=== PATIENT | female | born 1935 | race Caucasian/White ===

== ENCOUNTER 2016-04-05 13:39 | Inpatient (IN) | payer MEDICARE, MEDICAID ==
[~2016-04-05] VITALS: Ht 157.5 cm; Wt 74.1 kg
[~2016-04-05 13:39] MED LIST: CALC625T PO; DIVA250T PO; DIVA500T17 PO; Ibuprofen PO; LISI10TA2 PO; LORA-447 PO; LORA10TA75 PO; METO25TA9 PO; OLAN5TAB3 PO; OLAN5TAB5 SL; RISP0.2518 PO; SENN8.6C2 PO; SIMV10TA3 PO
[2016-04-05] MEDS ORDERED: NS 1000ML 1,000 ML IV ONE (14:30)
--- NOTE | 2016-04-05 14:48 | ER.PDOC ---
General Chief Complaint: Altered Mental Status Stated Complaint: FALL TRAVEL OUT OF US: No Time seen by MD: 14:46 Source: patient, halfway records Exam Limitations: no limitations History of Present Illness Initial Comments Elevated creatinine, sent from care home. Timing/Duration: unsure Associated Symptoms: denies symptoms Allergies: Coded Allergies: butorphanol (Verified Allergy, Unknown, 03/07/15) Home Meds Active Scripts Simvastatin 10 Mg Scyxml47 Mg PO HS #30 TABLET Prov:CUCO ANTONY MD 04/08/15 Lisinopril 10 Mg Ugnruk30 Mg PO HS #30 TABLET Prov:CUCO ANTONY MD 04/08/15 Metoprolol Succinate 25 Mg Tab.er.24h25 Mg PO DAILY #30 TAB Prov:CUCO ANTONY MD 04/08/15 Loratadine (Claritin)10 Mg Pvrfah94 Mg PO DAILY #30 TABLET Prov:CUCO ANTONY MD 04/08/15 [Ibuprofen] 600 MG TABLET No Conflict Uoipw923 Mg PO Q8HR PRN PAIN #100 TABLET Prov:CUCO ANTONY MD 04/08/15 Sennosides (Senna)8.6 Mg Capsule8.6 Mg PO BID #60 CAPSULE Prov:CUCO ANTONY MD 04/08/15 Calcium Polycarbophil (Fibercon)625 Mg Tablet1,250 Mg PO DAILY #30 TABLET Prov:CUCO ANTONY MD 04/08/15 Risperidone (Risperdal)0.25 Mg Tablet0.5 Mg PO BID #60 TABLET Ref 1 Prov:MARLENI BAILEY IV, MD 04/07/15 Divalproex Sodium (Depakote Er)250 Mg Tab.er.59p126 Mg PO HS #30 Prov:RICKEY HARLEY MD 03/21/15 Past Medical History Medical History: hypertension, other Surgical History: coronary bypass surgery Social History Smoking: non-smoker Alcohol Use: none Drug Use: none Review of Systems Constitutional: no symptoms reported Respiratory: no symptoms reported Cardiovascular: no symptoms reported Gastrointestinal: no symptoms reported Genitourinary: see HPI Musculoskeletal: no symptoms reported Skin: no symptoms reported All Other Systems: Reviewed and Negative Physical Exam General Appearance: No Apparent Distress, WD/WN Neck: Non-Tender, Full Range of Motion, Supple, Normal Inspection Respiratory: chest non-tender, lungs clear, normal breath sounds, no respiratory distress CVS: reg rate & rhythm, no murmur, no gallop, pulses nml, nml capillary refill Gastrointestinal: Normal Bowel Sounds, No Organomegaly, No Pulsatile Mass, Non Tender Back: Normal Inspection, No CVA Tenderness Extremities: Normal Range of Motion 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 NML as Tested Results/Orders Results/Orders Administered Medications Medications (Trade) Dose Ordered Sig/Say Route PRN Reason Start Time Stop Time Status Last Admin Dose Admin Sodium Chloride (NS 1000ml) 1,000 ml @ 100 mls/hr Q10H ONCE IV 04/05/16 14:30 04/06/16 00:29 04/05/16 15:34 Course Blood Pressure Systolic: 127 Blood Pressure Diastolic: 60 Blood Pressure Mean: 82 Departure Time of Disposition: 15:52 Disposition: 09 ADMITTED INPATIENT Impression: Primary Impression: Acute kidney injury Additional Impression: Dehydration Condition: Stable Referrals: PCP,UNKNOWN (PCP) PRIMARY CARE PROVIDER Comments Admitted to Dr. Irving RASHID,MARYLIN Rubalcava MD Apr 05, 2016 14:48
--- NOTE | 2016-04-05 14:50 | NUR ---
DR FAISAL MONCADA MBA ON PHONE WITH DR MALONE
--- NOTE | 2016-04-05 15:08 | NUR ---
MS CALLED MS FOR RM #. PER NURSE, SABRINA IS NOT AT DESK AND SHE WILL CALL BACK ONCE SHE ASKS HIM WHAT RM
--- NOTE | 2016-04-05 15:16 | DIREP ---
PROCEDURE:CHEST X-RAY, AP PORTABLE COMPARISON:[facility], CR, XRAY CHEST SINGLE VW, 03/30/2015, 06:28 PM. [facility], CR, XRAY CHEST SINGLE VW, 03/07/2015, 05:30 PM. INDICATIONS:Elevated white count R/O infection FINDINGS: LUNGS/PLEURA:No significant pulmonary parenchymal abnormalities. No effusions. VASCULATURE:Normal. Unremarkable pulmonary vasculature. CARDIAC:Median sternotomy wires and CABG markers are present. MEDIASTINUM:Atherosclerotic calcifications of the thoracic aorta are noted. BONES:Marked degenerative changes are seen in the shoulders OTHER:Negative. CONCLUSION: 1. Evidence of prior CABG procedure. 2. No active pulmonary disease. Dictated by: Chirag Rangel MD on 04/05/2016 at 03:13 PM
[2016-04-05] MEDS ORDERED: NS 1000ML 1,000 ML ONE (15:24)
--- NOTE | 2016-04-05 15:58 | PRM.ACF1 ---
Date and Time Date and Time Time: 15:58 Admission Criteria Forms DEHYDRATION Clinical Indications for Admission to Inpatient Care (Place 'X' for any and all applicable criteria): Admission is indicated for ANY ONE of the following (1)(2)(3)(4)(5): [ x]I. Inpatient admission required rather than observation care (see Dehydration: Observation Care guideline as appropriate) because of ANY ONE of the following: [ ]a) Vomiting that is severe or persistent [ ]b) Severe electrolyte abnormalities requiring inpatient care [ ]c) Hemodynamic instability [ ]d) IV fluid to replace significant ongoing losses (greater than 3 L/m2 per day (10) (11) [ ]e) Parenteral nutrition regimen that must be implemented on inpatient basis [ ]f) Other condition,treatment or monitoring requiring inpatient admission [ ]II. Serious cause for dehydration requiring acute hospitalization (eg, bowel obstruction, increased intracranial pressure, infectious cause) Extended stay beyond goal length of stay may be needed for(1)(3 )(4)(17): [ ]a) Chronic severe dehydration [ ]b) Persistent vital sign changes, severe electrolyte imbalance, or diagnosed cause of dehydration that requires continued hospitalization (eg, bowel obstruction, increased intracranial pressure) [ ]c) Older patients (65 years or older) [ ]d) Severe comorbid illness (eg, renal failure, heart failure, poorly controlled diabetes) The original [employer] content created by [employer] has been revised. The portions of the content which have been revised are identified through the use of italic text or in bold, and [facility] has neither reviewed nor approved the modified material. All other unmodified content is copyright [employer] [facility]. Please see references footnoted in the original [employer] edition 2015 MARYLIN RASHID MD Apr 05, 2016 15:58
[2016-04-05] MEDS ORDERED: KCL IV SCH (16:00)
[2016-04-05] MEDS ORDERED: [UNRECOGNIZED DRUG - OTHER] IV SCH (16:00)
[2016-04-05] MEDS ORDERED: 1/2 NS IV SCH (16:00)
[2016-04-05] MEDS ORDERED: RISP1TAB3 PO (16:12)
[2016-04-05 16:37] LABS: BILIRUBIN,URINE NEGATIVE (NEGATIVE); PH,URINE 5 (5.0-6.0); UROBILINOGEN,URINE NORMAL (NEGATIVE)
[2016-04-05 16:40] LABS: APPEARANCE,URINE HAZY (CLEAR); UA COLOR YELLOW (YELLOW)
[2016-04-05 16:57] VITALS: BP 136/72
[2016-04-05] MEDS: D5W-1/2 NS/KCL 20MEQ 1,000 ML IV SCH (17:35)
--- NOTE | 2016-04-05 17:48 | NUR ---
admit ASSESSMENT COMPLETE CHARTED, ADMITTED WITH ARF AND DEHYDRATION, PT BECAME WEAK AND FELL, [facility] HAD PT TRANSPORTED HERE VIA EMS. ASSESSMENT COMPLETE CHARTED. LEFT IN SEMIF[facility]ERS CALL LIGHT IN REACH, HANDRAIL UP X2.
[2016-04-05 20:00] VITALS: BP 114/52
[2016-04-06] VITALS (7 sets, daily range): BP systolic 118–189; BP diastolic 56–94
[2016-04-06] MEDS: D5W-1/2 NS/KCL 20MEQ 1,000 ML IV SCH ×2 (03:45→12:24)
[2016-04-06 05:39] LABS: BASOPHIL % 0.1 % (0.0-0.2); EOSINOPHIL # 0.2 10^3/uL (0.0-0.2); EOSINOPHIL % 2.4 % (0.0-5.0); HEMATOCRIT 39.3 % (36.0-46.0); HEMOGLOBIN 13.3 g/dL (12.0-15.0); LYMPHOCYTES # 1.5 10^3/uL (1.0-4.8); LYMPHOCYTES % 14.6 % (24.0-44.0); MEAN CELL HGB 31.2 pg (26-34); MEAN CELL HGB CONCENTRATION 33.8 g/dL (33-37); MEAN CORP VOLUME 92.3 fL (78-100); MEAN PLATELET VOLUME 8.6 fL (7.8-11.0); MONOCYTES # 1.7 10^3/uL (0.3-0.8); MONOCYTES % 17.2 % (5.0-12.0); NEUTROPHIL # 6.6 10^3/uL (1.8-7.7); NEUTROPHILS % 65.5 % (41.0-85.0); RED BLOOD CELL 4.26 10^6/uL (4.00-5.20); RED CELL DISTRIBUTION WIDTH 13.4 % (11.5-14.5); WHITE BLOOD CELL 10.1 10^3/uL (4.5-11.0)
[2016-04-06 05:49] LABS: ANION GAP 16.1; CALCIUM 8.3 mg/dL (8.4-10.5); CARBON DIOXIDE 19.1 mmol/L (20.0-32); CREATININE SERUM 1.35 mg/dL (0.59-1.40); GLUCOSE 110 mg/dL (70-110)
[2016-04-06] MEDS ORDERED: TYLENOL PO ONE (06:28)
[2016-04-06] MEDS ORDERED: TYLENOL PO PRN (06:30)
--- NOTE | 2016-04-06 08:30 | NUR ---
DISCHARGE PLAN VISITED WITH PATIENT CONCERNING DISCHARGE PLAN AND NEED. PATIENT STATED SHE LIVES @ [facility] AND IS HAPPY THERE. PATIENT ALSO STATED SHE IS WHEELCHAIR BOUND; HOWEVER SHE IS VERY INDEPENDENT ON ADLS. CM NOTIFIED [facility] AND SPOKE TO DANNI REGARDING PATIENTS HOSPITAL ADMISSION. DANNI STATED PATIENT IS A RESIDENT WITH [facility] AND IS "OKAY" TO COME BACK UPON DISCHARGE ACCORDING TO HER INSURANCE-NO INSURANCE BARRIER. CURRENT GOAL FOR PATIENT IS TO RETURN BACK HOME TO [facility] UPON DISCHARGE. CM TO CONTINUE TO FOLLOW PATIENTS PLAN OF CARE.
--- NOTE | 2016-04-06 08:40 | PCM.HP ---
History of Present Illness Reason for Visit: weakness and acute renal failure History of Present Illness 80-year-old lady , very poor historian due to severe dementia. Resides in assisted and wast ransferred to our emergency room for abnormal lab results show an acute renal failure with weakness. patient was unable to give me any more medical information, there was a notable mid sternotomy scar for open heart procedure the patient cannot identify. no family members were available to assist in obtaining further medical history the patient creatinine was 2.3 on presentation she was started on IV fluids Past Medical History Cardiac: HTN, Other ENT: Allergic Rhinitis Past Surgical History: CABG ( details unavailable) Past Social History Smoke: No Alcohol: none Lives: [facility] Travel Hx EBOLA RISK:Travel to/contact w: No Is pt experiencing any Ebola s: No Review of Systems Constitutional: : Malaise: Weakness ENT: No: Ear discharge, Ear pain, Mouth pain, Mouth swelling, Nose congestion, Nose discharge, Nose pain, Other, Throat pain, Throat swelling Respiratory: : Cough: Dry: Shortness of breath Cardiovascular: No: Chest Pain, Edema, Lt Headedness, Orthopnea, Other, Palpitations, Paroxysmal Noc. Dyspnea Gastrointestinal: No: Abdominal Pain, Constipation, Diarrhea, Hematochezia, Melena, Nausea, Other, Vomiting Genitourinary: No Dysuria, No Frequency, No Incontinence, No Hematuria, No Retention, No Other Musculoskeletal: : arm pain: back pain: foot pain: hand pain: leg pain: neck pain: shoulder painNo: other Skin: No: Bruising, Jaundice, Lesions, Other, Rash Allergies: Coded Allergies: butorphanol (Verified Allergy, Unknown, 03/07/15) Scheduled Calcium Polycarbophil (Fibercon) 1,250 MG PO DAILY Divalproex Sodium (Depakote Er) 750 MG PO HS Lisinopril (Lisinopril) 10 MG PO HS Loratadine (Claritin) 10 MG PO DAILY Metoprolol Succinate (Metoprolol Succinate) 25 MG PO DAILY Risperidone (Risperidone) 1 TAB PO BID (Reported) Sennosides (Senna) 8.6 MG PO BID Simvastatin (Simvastatin) 10 MG PO HS Scheduled PRN ([Ibuprofen]) 600 MG PO Q8HR PRN PRN PAIN Discontinued Medications Risperidone (Risperdal) 0.5 MG PO BID Discontinued Reason: No Longer Taking VTE VTE Risk Total Score: 3 VTE Risk Score VTE Risk: Score 0-1 = Low Risk (Aggressive mobilization; early ambulation; no VTE prophylaxis required) Score 2: Moderate Risk (Intermittent/Pneumatic Compression Device OR Lovenox/Heparin/Coumadin) Score 3-4: High Risk (Intermittent/Pneumatic Compression Device AND Lovenox/Heparin/Coumadin) Score > or =5: Highest Risk (Intermittent/Pneumatic Compression Device AND Lovenox/Heparin/Coumadin) Antico:Hep/LMWH/Coum/Xarelto: Yes VTE VTE Present on Admission: Yes Currently receiving anticoagul: No VTE Risk Total Score: 3 Exam Vital Signs Vital Signs Date Time Temp Pulse Resp B/P Pulse Ox O2 Delivery O2 Flow Rate FiO2 04/06/16 04:00 98.1 90 18 136/84 93 04/05/16 22:30 Room Air General Appearance: Alert, No acute distress, Other HEENT: Atraumatic, EOMI Respiratory: Clear to auscultation, Other ( notable mid sternotomy scar) Cardiovascular: Regular rate, Normal S1, Normal S2, Other ( no mechanical sounds) Abdominal: Normal bowel sounds Extremities: No clubbing, No cyanosis Skin: No rash Assessment/Plan Assessment/Plan Assessment/Plan - acute renal failure - dehydration - severe dementia - CABG - chronic lumbar pain Problems: Patient History: Asthma 21 CHILD Congestive heart failure 34 MOTHER ENEDELIA MALONE MD Apr 06, 2016 08:40
[2016-04-06] MEDS ORDERED: NS 1000ML 1,000 ML IV ONE (09:00)
[2016-04-06] MEDS: SENOKOT PO SCH ×2 (09:14→21:22)
[2016-04-06] MEDS: CLARITIN PO SCH (09:14)
[2016-04-06] MEDS: FIBERCON PO SCH (09:14)
[2016-04-06] MEDS: TOPROL XL PO SCH (09:14)
[2016-04-06] MEDS: RISPERDAL PO SCH ×2 (09:14→21:21)
[2016-04-06] MEDS: PEPCID PO SCH ×2 (09:14→21:21)
[2016-04-06] MEDS: LOVENOX SQ SCH (09:15)
[2016-04-06 09:36] LABS: CHOLESTEROL 145 mg/dL (120-240); HDL CHOLESTEROL 33 mg/dL (32-96)
[2016-04-06 15:21] LABS: BILIRUBIN,URINE NEGATIVE (NEGATIVE); PH,URINE 6 (5.0-6.0); UROBILINOGEN,URINE NORMAL (NEGATIVE)
[2016-04-06 15:25] LABS: APPEARANCE,URINE CLEAR (CLEAR); UA COLOR STRAW (YELLOW)
[2016-04-06] MEDS: NORCO 5 MG PO PRN (19:24)
[2016-04-06] MEDS ORDERED: ZOCOR ONE (20:54)
[2016-04-06] MEDS: DEPAKOTE ER PO SCH (21:21)
[2016-04-06] MEDS: ZESTRIL PO SCH (21:21)
[2016-04-06] MEDS: ZOCOR PO SCH (21:22)
[2016-04-07] MEDS: D5W-1/2 NS/KCL 20MEQ 1,000 ML IV SCH ×2 (01:04→09:31)
[2016-04-07] MEDS: NORCO 5 MG PO PRN (01:36)
[2016-04-07 04:00] VITALS: BP 126/55
[2016-04-07 06:46] LABS: BASOPHIL # 0.1 10^3/uL (0.0-0.1); BASOPHIL % 0.7 % (0.0-0.2); EOSINOPHIL # 0.4 10^3/uL (0.0-0.2); EOSINOPHIL % 4.5 % (0.0-5.0); HEMATOCRIT 36.5 % (36.0-46.0); HEMOGLOBIN 12.3 g/dL (12.0-15.0); LYMPHOCYTES # 1.9 10^3/uL (1.0-4.8); LYMPHOCYTES % 23.9 % (24.0-44.0); MEAN CELL HGB 31.7 pg (26-34); MEAN CELL HGB CONCENTRATION 33.7 g/dL (33-37); MEAN CORP VOLUME 94.1 fL (78-100); MEAN PLATELET VOLUME 8.7 fL (7.8-11.0); MONOCYTES # 1.6 10^3/uL (0.3-0.8); MONOCYTES % 19.3 % (5.0-12.0); NEUTROPHIL # 4.1 10^3/uL (1.8-7.7); NEUTROPHILS % 51.4 % (41.0-85.0); PLATELET COUNT 105 10^3/uL (150-400); RED BLOOD CELL 3.88 10^6/uL (4.00-5.20); RED CELL DISTRIBUTION WIDTH 13.1 % (11.5-14.5); WHITE BLOOD CELL 8.1 10^3/uL (4.5-11.0)
[2016-04-07 07:12] LABS: ANION GAP 14.4; CALCIUM 8.3 mg/dL (8.4-10.5); CARBON DIOXIDE 21.6 mmol/L (20.0-32); CREATININE SERUM 0.71 mg/dL (0.59-1.40); GLUCOSE 122 mg/dL (70-110)
[2016-04-07 08:54] VITALS: BP 146/68
[2016-04-07] MEDS: PEPCID PO SCH ×2 (08:56→20:19)
[2016-04-07] MEDS: SENOKOT PO SCH ×2 (08:56→20:19)
[2016-04-07] MEDS: RISPERDAL PO SCH ×2 (08:56→20:20)
[2016-04-07] MEDS: TOPROL XL PO SCH (08:56)
[2016-04-07] MEDS: CLARITIN PO SCH (08:56)
[2016-04-07] MEDS: FIBERCON PO SCH (08:57)
[2016-04-07] MEDS: LOVENOX SQ SCH (08:58)
--- NOTE | 2016-04-07 10:35 | PRM.PN ---
Subjective Subjective Subjective 80-year-old lady , very poor historian due to severe dementia. Resides in [facility] and was transferred to our emergency room for abnormal lab results show an acute renal failure with weakness. patient was unable to give me any more medical information, there was a notable mid sternotomy scar for open heart procedure the patient cannot identify. no family members were available to assist in obtaining further medical history the patient creatinine was 2.3 on presentation she was started on IV fluids, Improved significantly with hydration, mental status remained stable. Patient was communicative but demented. lab results were reviewed. Patient is stable. Pending availability of [facility] patient for transfer back she is on the following regimen of GI and DVT prophylaxis Patient History: Asthma 21 CHILD Congestive heart failure 34 MOTHER VTE VTE Risk Total Score: 3 VTE Risk Score VTE Risk: Score 0-1 = Low Risk (Aggressive mobilization; early ambulation; no VTE prophylaxis required) Score 2: Moderate Risk (Intermittent/Pneumatic Compression Device OR Lovenox/Heparin/Coumadin) Score 3-4: High Risk (Intermittent/Pneumatic Compression Device AND Lovenox/Heparin/Coumadin) Score > or =5: Highest Risk (Intermittent/Pneumatic Compression Device AND Lovenox/Heparin/Coumadin) Antico:Hep/LMWH/Coum/Xarelto: Yes Review of Systems Constitutional: : Malaise: Weakness ENT: No: Ear discharge, Ear pain, Mouth pain, Mouth swelling, Nose congestion, Nose discharge, Nose pain, Other, Throat pain, Throat swelling Respiratory: : Cough: Dry: Shortness of breath Cardiovascular: No: Chest Pain, Edema, Lt Headedness, Orthopnea, Other, Palpitations, Paroxysmal Noc. Dyspnea Gastrointestinal: No: Abdominal Pain, Constipation, Diarrhea, Hematochezia, Melena, Nausea, Other, Vomiting Genitourinary: No Dysuria, No Frequency, No Incontinence, No Hematuria, No Retention, No Other Musculoskeletal: : arm pain: back pain: foot pain: hand pain: leg pain: neck pain: shoulder painNo: other Skin: No: Bruising, Jaundice, Lesions, Other, Rash Allergies: Coded Allergies: butorphanol (Verified Allergy, Unknown, 03/07/15) Scheduled Calcium Polycarbophil (Fibercon) 1,250 MG PO DAILY Divalproex Sodium (Depakote Er) 750 MG PO HS Lisinopril (Lisinopril) 10 MG PO HS Loratadine (Claritin) 10 MG PO DAILY Metoprolol Succinate (Metoprolol Succinate) 25 MG PO DAILY Risperidone (Risperidone) 1 TAB PO BID (Reported) Sennosides (Senna) 8.6 MG PO BID Simvastatin (Simvastatin) 10 MG PO HS Scheduled PRN ([Ibuprofen]) 600 MG PO Q8HR PRN PRN PAIN Discontinued Medications Risperidone (Risperdal) 0.5 MG PO BID Discontinued Reason: No Longer Taking Objective Vitals and I/O Vital Sign - Last 24 Hours 04/06/16 04/06/16 04/06/16 04/06/16 12:19 16:12 19:22 19:53 Temp 97.7 98.7 98.4 Pulse 81 93 92 Resp B/P 142/66 189/94 164/80 Pulse Ox 93 92 91 O2 Delivery Room Air 04/06/16 04/06/16 04/07/16 04/07/16 21:21 23:55 04:00 08:54 Temp 98.7 99.2 97.5 Pulse 84 75 73 Resp 18 B/P 164/80 160/84 126/55 146/68 Pulse Ox 92 91 94 Intake and Output 04/06/16 04/06/16 04/07/16 15:00 23:00 07:00 Intake Total 3922 ml Output Total 3200 ml 500 ml Balance -3200 ml 3422 ml General: Alert HEENT: Atraumatic, Other ( Old mid sternotomy scar) Neck: Supple, No thyromegaly, Other Lungs: Clear to auscultation, Normal air movement Heart: Regular rate, No murmurs, Other ( soft systolic murmur) Abdomen: Normal bowel sounds Extremities: No clubbing Skin: No rashes Medication Reconciliation Scheduled Calcium Polycarbophil (Fibercon) 1,250 MG PO DAILY Divalproex Sodium (Depakote Er) 750 MG PO HS Lisinopril (Lisinopril) 10 MG PO HS Loratadine (Claritin) 10 MG PO DAILY Metoprolol Succinate (Metoprolol Succinate) 25 MG PO DAILY Risperidone (Risperidone) 1 TAB PO BID (Reported) Sennosides (Senna) 8.6 MG PO BID Simvastatin (Simvastatin) 10 MG PO HS Scheduled PRN ([Ibuprofen]) 600 MG PO Q8HR PRN PRN PAIN Discontinued Medications Risperidone (Risperdal) 0.5 MG PO BID Discontinued Reason: No Longer Taking Assessment/Plan Assessment/Plan Patient History: Asthma 21 CHILD Congestive heart failure 34 MOTHER ENEDELIA MALONE MD Apr 07, 2016 10:35
[2016-04-07 11:41] LABS: BAND NEUTROPHILS 3 % (2-6); BASOPHIL 0 % (0-2); BLAST 0 %; DIFFERENTIAL COMMENT 9 REACTIVE LYMPH; EOSINOPHIL 5 % (1-4); HYPOCHROMIA 1+ (NEGATIVE); LYMPHOCYTE 14 % (25-36); MONOCYTE 12 % (3-9); MYELOCYTES 0 %; NUCLEATED RED BLOOD CELLS 0 % (0-0); OTHER CELL TYPE 9; PLASMA CELLS 0; POIKILOCYTOSIS 1+ (NEGATIVE); POLYCHROMASIA NEGATIVE (NEGATIVE); PROMYELOCYTES 0 %; SEGMENTED NEUTROPHILS 53 % (31-76); TOTAL CELLS COUNTED 100 #CELLS
[2016-04-07 11:42] LABS: ACANTHOCYTES NEGATIVE (NEGATIVE); ANISOCYTOSIS 3+ (NEGATIVE); BURR CELLS NEGATIVE (NEGATIVE); CABOT RINGS NEGATIVE (NEGATIVE); CRENATED RBCS NEGATIVE (NEGATIVE); ECHINOCYTES NEGATIVE (NEGATIVE); ELLIPTOCYTES NEGATIVE (NEGATIVE); HELMET CELLS NEGATIVE (NEGATIVE); HOWELL-JOLLY BODIES NEGATIVE (NEGATIVE); MICROCYTOSIS 2+ (NEGATIVE); OVALOCYTES NEGATIVE (NEGATIVE); ROULEAUX NEGATIVE (NEGATIVE); SCHISTOCYTES NEGATIVE (NEGATIVE); SICKLE CELLS NEGATIVE (NEGATIVE); SMUDGE CELLS NEGATIVE (NEGATIVE); SPHEROCYTES NEGATIVE (NEGATIVE); STOMATOCYTES NEGATIVE (NEGATIVE); TARGET CELLS NEGATIVE (NEGATIVE); TOXIC GRANULATION NEGATIVE (NEGATIVE)
--- NOTE | 2016-04-07 18:35 | NUR ---
REPORT REPORT RECEIVED FROM CARMEN ARZOLA ASSUMED CARE OF PT
[2016-04-07 20:00] VITALS: BP 116/72
[2016-04-07] MEDS: ZESTRIL PO SCH (20:19)
[2016-04-07] MEDS: DEPAKOTE ER PO SCH (20:19)
[2016-04-07] MEDS: ZOCOR PO SCH (20:20)
[2016-04-07] MEDS ORDERED: ZOCOR ONE (20:20)
--- NOTE | 2016-04-07 21:34 | NUR ---
STATUS IV INFILTRATED. DR MALONE NOTIFIED. ORDERS TO NOT PLACE NEW IV RECEIVED.
[2016-04-08] VITALS: BP 141/68
[2016-04-08 04:00] VITALS: BP 151/76
[2016-04-08 08:05] VITALS: BP 115/59
--- NOTE | 2016-04-08 08:20 | PRM.DC ---
Discharge Summary Date of Arrival on Unit: Apr 05, 2015 Reason for Visit: weakness and acute renal failure Patient History: Asthma 21 CHILD Congestive heart failure 34 MOTHER History Present Illness: (1) UTI (urinary tract infection) Status: Resolved ICD Code: N39.0 SNOMED: 91030935 (2) Dementia with behavioral disturbance Status: Chronic ICD Code: F03.91 SNOMED: 5954594404442 (3) Dehydration Status: Resolved ICD Code: E86.0 SNOMED: 97022543 (4) Acute kidney injury Status: Resolved ICD Code: N17.9 SNOMED: 09161668 General: Alert, Cooperative, No acute distress, Other (oriented times one) HEENT: PERRLA, EOMI, Mucous membr. moist/pink Neck: Supple, No JVD Lungs: Clear to auscultation, Normal air movement, Other (shallow inspiratory effort) Heart: Regular rate, Other (mild NATALIA RUSB) Abdomen: Normal bowel sounds, Soft, No tenderness Extremities: No clubbing, No cyanosis Skin: No rashes, No breakdown Neuro: Strength at 5/5 X4 ext, Normal tone, Sensation intact, Cranial nerves 3- 12 NL Psych/Mental Status: Mood NL, Other (chronic dementia - no abnormal behaviors at this time) Scheduled Calcium Polycarbophil (Fibercon) 1,250 MG PO DAILY Divalproex Sodium (Depakote Er) 750 MG PO HS Lisinopril (Lisinopril) 10 MG PO HS Loratadine (Claritin) 10 MG PO DAILY Metoprolol Succinate (Metoprolol Succinate) 25 MG PO DAILY Risperidone (Risperidone) 1 TAB PO BID (Reported) Sennosides (Senna) 8.6 MG PO BID Simvastatin (Simvastatin) 10 MG PO HS Scheduled PRN ([Ibuprofen]) 600 MG PO Q8HR PRN PRN PAIN Discontinued Medications Risperidone (Risperdal) 0.5 MG PO BID Discontinued Reason: No Longer Taking Course Blood Pressure Systolic: 115 Blood Pressure Diastolic: 59 Blood Pressure Mean: 77 MARLENI OLVERA MD Apr 08, 2016 08:20
[2016-04-08] MEDS: TOPROL XL PO SCH (08:34)
[2016-04-08] MEDS: RISPERDAL PO SCH (08:34)
[2016-04-08] MEDS: PEPCID PO SCH (08:34)
[2016-04-08] MEDS: SENOKOT PO SCH (08:34)
[2016-04-08] MEDS: CLARITIN PO SCH (08:34)
[2016-04-08] MEDS: FIBERCON PO SCH (09:00)
[2016-04-08] MEDS: LOVENOX SQ SCH (09:00)
--- NOTE | 2016-04-08 22:23 | DSH ---
DATE OF DISCHARGE: 04/08/2016 DISPOSITION: [facility] PRINCIPAL DIAGNOSES AT DISCHARGE: Includes dementia with behavioral disturbance, acute kidney injury, dehydration and urinary tract infection. BRIEF SUMMARY: The patient was initially admitted on 04/05/2016 through the Emergency Room with initial complaints being altered mental status. She does have a baseline dementia. Workup revealed she had a urinary tract infection and was likely the etiology of her altered mental status. She was placed in the hospital, given IV fluid hydration, IV antibiotics. Diet was continued, although she did have a poor oral intake this admission. She had GI and DVT prophylaxis. Her home medications were also continued. She did have urinary catheter placed, which was removed on day of discharge. We will discharge back to the halfway or jail therapy per PT and OT as tolerated. DISCHARGE MEDICATIONS: Resume her previous medications. She had sufficient antibiotics this admission to cover for infection. DISCHARGE DIET: Will be regular diet as tolerated. DISCHARGE FOLLOWUP: With the primary care physician in 1-2 weeks. Discharge plans could not be discussed with the patient due to her advanced dementia. Time spent on discharge was 35 minutes. Andrew De Leon MD DR: LAUREN/morenita JOB# [id number]
--- NOTE | 2016-04-09 11:38 | NUR ---
[facility] CLINICAL CM FAXED PATIENTS UPDATED CLINICAL INFORMATION WITH DISCHARGE INSTRUCTIONS TO [facility] PER REQUEST. CM ALSO NOTIFIED [facility] AND SPOKE TO DANNI REGARDING FAX. NO FURTHER CM OR DISCHARGE NEEDS KNOWN @ THIS TIME.
--- NOTE | 2016-04-10 17:26 | ECHO ---
DATE OF SERVICE: 04/06/2016 INDICATIONS: A 80-year-old lady with dementia, history of coronary artery bypass procedure and mild renal failure, dehydration. Echocardiographic study was requested to evaluate systolic and diastolic function, IV fluid management to avoid CHF and have a baseline study about the patient's cardiac condition. FINDINGS: 1. Study quality was fair. 2. Underlying rhythm was sinus rhythm. 3. LV function was depressed around 40%, lateral wall hypokinesia, minimal LVH, normal LV dimensions. End-diastolic dimension of the LV was 5.4 cm. 4. Septal akinesia noted as well. 5. RV size and EF were normal. 6. Both atria were mildly dilated. 7. Mitral valve is calcified, minimal regurgitation, no stenosis. Doppler signal exam showed E to A reversal with grade 1 diastolic dysfunction. Mitral valve mean gradient was 2.3 mmHg ruling out significant stenosis. 7. Aortic valve was suboptimally visualized. I do believe there is moderate aortic regurgitation. The Doppler examination estimated the mean velocity of 0.8 m/sec. Aortic valve area was 3.2 cm2 by VTI method, normal readings. 8. Pulmonary artery systolic pressure was around 30 mmHg. 9. No pericardial effusion. 10. IVC was normal in size. IMPRESSION: 1. EF was depressed around 40% with lateral and septal akinesia. 2. Normal LV dimension. 3. Mild LVH. 4. Normal RV size and EF. 5. Normal atrial size. 6. Mitral calcification with minimal regurgitation, no stenosis. 7. Grade 1 diastolic dysfunction. 8. Aortic regurgitation is moderate with calcification, no stenosis. 9. Normal pulmonary artery systolic pressure. 10. No pericardial effusion. 11. Inferior vena cava was not well visualized. Trey Villatoro MD DR: RAHUL/morenita JOB# [id number]
== END 2016-04-08 12:29 | DRG 682 ==
LOC: ER 13:39 → EDBD 13:39 → MS 15:10
PROVIDERS: ADMIT Internal Medicine; ATTEND Internal Medicine
DX: N17.9 Acute kidney failure, unspecified (principal); G93.41 Metabolic encephalopathy; F03.91 Unspecified dementia, unspecified severity, with behavioral disturbance; N39.0 Urinary tract infection, site not specified; E86.0 Dehydration; I10 Essential (primary) hypertension; M54.5 Low back pain; G89.29 Other chronic pain; Z95.1 Presence of aortocoronary bypass graft; Z88.6 Allergy status to analgesic agent; Z79.899 Other long term (current) drug therapy; Z82.5 Family history of asthma and other chronic lower respiratory diseases; Z82.49 Family history of ischemic heart disease and other diseases of the circulatory system
CPT/HCPCS: 36415; 71010; 80048; 80061; 81000; 83880; 84443; 84484; 85007; 85025; 87086; 93005; 93307; 99285; A4338; J1650; J7030; J7070